=== PATIENT | female | born 1965 | race Caucasian/White ===

== ENCOUNTER → 2017-08-04 | Outpatient (CLI) | payer OTHER ==
[~2017-08-04] MED LIST: ALPR-138 PO; NADO1TAB16 PO; NAPR-729 PO; NEXI40CA PO
[2017-08-04 13:57] LABS: BLOOD GAS BASE EXCESS -2.7 mmol/L (-2-2); BLOOD GAS CARBOXYHEMOGLOBIN 1.3 % (0-4); BLOOD GAS HCO3 21 mmol/L (22-26); BLOOD GAS O2 HGB SATURATION 94 % (90-100); BLOOD GAS OXYGEN CONTENT 17.5 Vol % (12.0-20.0); BLOOD GAS PCO2 34 mmHg (38-42); BLOOD GAS PO2 82 mmHg (61-120); BLOOD GAS TOTAL HGB 13.2 G/DL (12.0-16.0); CRITICAL VALUE NO; FIO2 21 %; TEMP CORR TO 98.6
[2017-08-04 13:58] LABS: DRAW SITE RT RADIAL; NUMBER OF ARTERIAL PUNCTURES 1; STAT NO; ULNAR PULSE PRESENT
--- NOTE | 2017-08-10 08:40 | RSPPFT ---
DATE OF PROCEDURE: 08/04/17 COMMENTS: Spirometry with FVC of 2.9 predicted 3.2, FEV1 of 2.2 predicted 2.6, FEV1/FVC ratio 74% predicted 83%. Lung volumes show a mild increase in residual volume at 2.2 predicted 1.9. Patient has some responsiveness to acutely inhaled bronchodilator with FVC increasing to 3.4 and FEV1 to 2.5 IMPRESSION: On the basis of the above, patient's flow values appear to be within the predicted range. There is evidence of responsiveness to acutely inhaled bronchodilator
== END ==
LOC: HRSP 13:10
PROVIDERS: ATTEND Internal Medicine Pulmonary Disease
DX: R05 Cough (principal)
CPT/HCPCS: 36600; 82805; 94060; 94620; 94726; 94729